=== PATIENT | male | born 2005 | race Caucasian/White ===

== ENCOUNTER 2023-05-23 20:04 | Emergency (ER) | payer BC | END 2023-05-23 21:42 | disposition left against medical advice (07) | LOC: MW.ED 20:04 | DX: E10.9 Type 1 diabetes mellitus without complications (principal); Z76.0 Encounter for issue of repeat prescription | CPT/HCPCS: 82947; 99282; 99284 ==

== ENCOUNTER 2024-03-11 21:53 | Emergency (ER) | payer BC ==
[2024-03-11] MEDS: Azithromycin 250 MG Tab PO ONE (23:03)
== END 2024-03-11 23:07 | disposition home or self-care (01) ==
LOC: MW.ED 21:53
DX: J06.9 Acute upper respiratory infection, unspecified (principal); J40 Bronchitis, not specified as acute or chronic; E10.9 Type 1 diabetes mellitus without complications; Z79.899 Other long term (current) drug therapy; Z79.4 Long term (current) use of insulin; Z79.2 Long term (current) use of antibiotics; Z75.8 Other problems related to medical facilities and other health care
CPT/HCPCS: 71046; 99284; A9270; 99283